=== PATIENT | male | born 1975 ===

== ENCOUNTER 2025-01-02 16:04 | Emergency (ER) | payer BC, SELFPAY ==
--- NOTE | ~2025-01-02 | US_ITS ---
EXAMINATION: US scrotum doppler DATE: 01/02/2025 18:11 INDICATION: b/l inguinal pain; initially stated scrotal pain . TECHNIQUE: Grayscale and Doppler ultrasound images of the testes were obtained. COMPARISON: 06/05/2015. FINDINGS: The right testis measures 3.4 x 2.5 x 3.2 cm. The left testis measures 3.1 x 2.6 x 2.8 cm. No testicular mass. Slightly increased flow in the right testicle. The right epididymis enlarged with slightly increased vascular flow. The left epididymis is slightly enlarged. 4 mm epididymal cyst on the left. Small bilateral hydroceles. Right varicocele. IMPRESSION: Bilateral epididymal enlargement, with increased flow on the right including increased flow in the ri ght testicle. These findings may represent right-sided epididymoorchitis, with possible left-sided ep ididymitis. Small bilateral hydroceles. Right varicocele. Reviewed, dictated and finalized at location K. IMPRESSION: Bilateral epididymal enlargement, with increased flow on the right including in creased flow in the right testicle. These findings may represent right-sided ep ididymoorchitis, with possible left-sided epididymitis. Small bilateral hydroceles. Right varicocele.
--- NOTE | ~2025-01-02 | CT_ITS ---
EXAMINATION: CT abdomen pelvis w con DATE: 01/02/2025 18:56 INDICATION: b/l inguinal pain and mons pubis pain TECHNIQUE: Computed tomography (CT) of the abdomen and pelvis was performed with 100 mL Omnipaque-350 intravenous contrast. Automated exposure control and iterative reconstruction technique were employe d. The dose-length product was 1645.65 mGy-cm. COMPARISON: None. FINDINGS: Lower thorax: Coronary artery calcifications Liver: Multiple subcentimeter hypodensities, too small to characterize but most likely represent cyst s or hemangiomas. Small caudate lobe cyst. Diffusely low-density parenchyma. Biliary/Gallbladder: Gallbladder is normal. No bile duct dilation. Pancreas: No mass or duct dilation. Spleen: Normal. Adrenals:2 cm indeterminate density left adrenal nodule. Kidneys: 1.4 cm indeterminate density left midpole lesion. Simple exophytic right lower pole cyst. Mu ltiple additional subcentimeter hypodensities bilaterally that are too small to characterize but most likely represent cysts. No hydronephrosis. No obstructing calcification. GI tract: No small or large bowel dilation. Normal appendix. Mesentery/Peritoneum: No ascites, mass, or free air. Retroperitoneum: No mass. Atherosclerotic calcifications of intra-abdominal arterial vessels. Pelvis: The urinary bladder is partly distended, with mild wall thickening. Soft Tissues: Small uncomplicated fat-containing umbilical hernia. Moderate bilateral fat-containing uncomplicated appearing inguinal hernias. Bones: No acute osseous finding. Moderate degenerative change of the pubic symphysis. IMPRESSION: Hepatic steatosis. Indeterminate left adrenal and left renal lesions, recommend nonemergent, but timely CT or MRI withou t and with contrast for further evaluation. Cystitis versus mild wall thickening from incomplete urinary bladder distention. Moderate fat-containing uncomplicated appearing bilateral inguinal hernias. Moderate degenerative change at the pubic symphysis. Reviewed, dictated and finalized at location K. IMPRESSION: Hepatic steatosis. Indeterminate left adrenal and left renal lesions, recommend nonemergent, but t imely CT or MRI without and with contrast for further evaluation. Cystitis versus mild wall thickening from incomplete urinary bladder distention . Moderate fat-containing uncomplicated appearing bilateral inguinal hernias. Moderate degenerative change at the pubic symphysis.
--- OUTSIDE RECORDS SUMMARY | 2025-01-02 16:07 | XMS_ITS | Clinical Summary ---
Author Organization [facility] Address [address] [place] [address] Care Team Providers Care Customer Support Consultant Name Role Phone Anupam Johansen MD Primary Care Provider Gigi finnegan Social History Tobacco Use Types Packs/Day Years Used Date Smoking Tobacco: Never Assessed Sex and Gender Information Value Date Recorded Sex Assigned at Not on file Legal Sex Male 7:25 PM CDT Gender Identity Not on file Sexual Orientation Not on file Last Filed Vital Signs Vital Sign Reading Time Taken Comments Blood Pressure 145/92 10/30/2015 11:30 AM COMMUNITY AFFAIRS DIRECTOR Pulse 91 10/30/2015 11:30 AM COMMUNITY AFFAIRS DIRECTOR Temperature - - Respiratory Rate - - Oxygen Saturation - - Inhaled Oxygen Concentration - - Weight 115.7 kg (255 lb) 10/30/2015 11:30 AM COMMUNITY AFFAIRS DIRECTOR Height 172.7 cm (5' 8 ) 10/30/2015 11:30 AM COMMUNITY AFFAIRS DIRECTOR Body Mass Index 38.77 10/30/2015 11:30 AM COMMUNITY AFFAIRS DIRECTOR Plan of Treatment Health Maintenance Due Date Last Done Comments Colorectal Cancer Screening Colonoscopy (10 Years) 1974 Annual Physical 1977 Hepatitis C 1992 DTaP, Tdap and Td Vaccines ( 1 - Tdap) 1993 Hepatitis B Vaccines (1 of 3 - 19+ 3-dose series) 1993 COVID-19 Vaccine (2023-2 5 season) 2024 Influenza Adult (#1) 2024 Zoster Vaccines (1 of 2) 2024 Meningococcal B Vaccine Aged Out No l onger eligible based on patient's age to complete this topic Meningococcal Vaccine Aged Out No micky mary eligible based on patient's age to complete this topic Pneumococcal Vaccine: Pediat rics (0 to 5 Years) and At-Risk Patients (6 to 64 Years) Aged Out No longer eligible b ased on patient's age to complete this topic RSV Immunizations Under 20 Months Aged Out No longer eligible based on patient's age to complete this topic Care Teams Customer Support Consultant Relationship Specialty Start Date End Date Anupam Johansen MD PCP - General 02/10/14
--- OUTSIDE RECORDS SUMMARY | 2025-01-02 16:07 | XMS_ITS | Clinical Summary ---
Author Organization [facility] Address [address] [place] [address] Care Team Providers Care Tin Roofer Name Role Phone Unavailable Primary Care Provider Unavailabl e Source Comments [facility],non-owned Affiliates and Associated Physician Practices is amultiple site organization consisting of ambulatory clinics and hospital sitesin [place], [place], [place] and [place]. This disclosure is being madepursuant to the Care Everywhere program and may not contain all information available regarding this patient. Last updated 18.[facility] Allergies Active Allergy Reactions Criticality Noted Date Comments Penicillins Anaphylaxis High 07/25/2012 Immunizations Name Administration Dates Next Due TD (ADULT), 5 LF TETANUS TOXOID, ADSORBED, PF Social History Tobacco Use Types Packs/Day Years Used Date Smoking Tobacco: Every Day Cigarettes Alcohol Use Standard Drinks/Week Comments No 0 (1 standard drink = 0.6 oz pur e alcohol) Sex and Gender Information Value Date Recorded Sex Assigned at Not on file Gender Identity Not on file Sexual Orientation Not on file Plan of Treatment Health Maintenance Due Date Last Done Comments COLOGUARD (AGES 45-75) - COL ON CA SCREENING 1974 COLON MONITORING 1974 COLONOSCOPY - COLON CA SCREENING 1974 CT COLONOGRAPHY - COLON CA SCREENING 1974 Colorectal Cancer Screening 1974 FIT - COLON CA SCREENING 1974 FLEX SIG - COLON CA SCREENING 1974 HIV SCREENING 1989 HEPATITIS C SCREENING 10/05/1992 HEPATITIS B VACCINE (1 of 3 - 19+ 3-dose series) 1993 PNEUMOCOCCAL VACCINE 50+ (1 of 2 - PCV) 1993 DTAP/TDAP/TD VACCINES (2 - T d or Tdap) 07/25/2022 07/25/2012 COVID-19 VACCINE (2023-2 5 season) 2024 INFLUENZA VACCINE (#1) 2024 DEPRESSION SCREENING 10/06/2024 ZOSTER VACCINE (1 of 2) 2024 LIPID TESTING 05/20/2028 05/20/2023 HIB VACCINE Aged Out No longer eligi ble based on patient's age to complete this topic HPV VACCINE Aged Out No longer eligi ble based on patient's age to complete this topic MENINGOCOCCAL (Group B) VACC INE SHARED DECISION-MAKING Aged Out No longer eligibl e based on patient's age to complete this topic MENINGOCOCCAL GROUPS A/C/Y/W VACCINE Aged Out No longer eligible b ased on patient's age to complete this topic
--- OUTSIDE RECORDS SUMMARY | 2025-01-02 16:07 | XMS_ITS | Data Portability ---
Author Organization [facility] vincent Александр [email or web address] Address [address] [place] [address] Assessment No assessment recorded. Plan of Treatment Reminders Order Date Submit Date Provider Last Modified By Organization Details Last Modified Time Details Appointments None recorded. Lab None recorded. Referral None recorded. Procedures None recorded. Surgeries None recorded. Imaging None recorded. Medication Orders prednisone 10 mg tablets in a dose pack 2015 016 Not available 6 05:03:15 azithromyci n 250 mg tablet 2015 016 [id number], [address] [place], [address], 6 05:03:16 hydrocodone -homatropin e 5 mg-1.5 mg/5 mL (5 mL) oral solution 2015 016 [id number], [address] [place], [address], 6 05:03:20 Patient TargetsNo targets recorded. Patient Instructions Encounter Date Encounter Id Patient Instructions Last Modified By Organization Details Last Modified Time 07/06/[id number] bronchitis: care instructions [id number] Not available 09/21/2016 05:03:10 Follow up if no improvement. [email or web address] Not available 07/06/2016 09:49:48 Reason for Referral None Reported. Problems Name Problem SNOMED Code Status Onset Date Resolution Date Notes Provider Name and Address Organization Details Recorded Time Hypertensive disorder 90041585 Active 2015 Alba Rowlette null, [facility] 6 09:40:58 Problem Notes None recorded. Procedures Surgical History Date Name Laterality Status Provider Name and Address Organization Details Recorded Time Hemorrhoidectomy completed Alba Cruz [facility] 07/06/2016 09:41:25 Imaging Results None recorded. Procedure Notes None recorded. Medical Equipment None Reported. Allergies Allergen ID Allergen Name Allergen Category Reaction Reaction Severity Criticality Documentation Date Start Date Code Code System Note Provider Name and Address Organization Details Recorded Time 006124 Product containin g penicilli n (product) medicatio n Not available Not available Not available 07/06/2016 23475 8001 SNOMED Alba wolff [facility] 6 09:39:35 Medications Name Sig Start Date Stop Date Status Note LastModified by Organization Details LastModified Time azithromycin 250 mg tablet TAKE 2 TABLETS (500 MG) BY ORAL ROUTE ONCE DAILY FOR 1 DAY THEN 1 TABLET (250 MG) BY ORAL ROUTE ONCE DAILY FOR 4 DAYS 2015 active Not Available Not Available Not Avai lable prednisone 10 mg tablets in a dose pack Take 1 package by oral route. 2015 active Not Available Not Available Not Avai lable atenolol active Not Available Not Avai lable Not Available fenofibrate active Not Available Not A vailable Not Available hydrocodone-ho matropine 5 mg-1.5 mg/5 mL (5 mL) oral solution Take 5 mL every 4 hours by oral route as needed. 2015 active Not Available Not Available Not Avai lable Vitals Date Recorded Body height Body weight Body mass index (BMI) Heart rate Respiratory rate Oxygen saturation Oxygen saturation in Arterial blood by Pulse oximetry Body temperature Systolic blood pressure Diastolic blood pressure Provider Name and Address Organization Details Last Updated DateTime 6 175.26 cm 942865. 09 g 36.9 kg/m2 77 /min 17 /min 98 % 98 % 98.2 [degF] 126 mm[Hg] 80 mm[Hg] Alba Cruz [facility] 6 09:39:12 Social History Question Answer Notes LastModified by Organizat ion Details LastModified Time Tobacco Smoking Status Current Every Day [facility] Patients Living Environment Safe And Secure? Yes Information not available 07/06/2016 High Risk For Falls? No Information not available 07/06/2016 Readiness To Learn Accepting Information not available 07/06/2016 Barriers To Learning None Information not available 07/06/2016 Learning Preferences No Preferences Information not available 07/06/2016 Do You Have Symptoms Associated With Zika Virus (fever, Rash, Joint Pain, Or Conjunctivitis)? No Information not available 07/06/2016 Have You Recently (within The Last 12 Weeks, Or During A Current ) Traveled To Or Lived In A Zika-affected Area? No Information not available 07/06/2016 Sex: Unknown Functional Status None recorded. Mental Status None recorded. Family History Relationship Description Onset Age of this Age Resolved Age Notes LastModified by Organization Details LastModified Time Father No current problems or disability [email or web address] Not available 07/06 09:41:00 Mother No current problems or disability drowlette Not available 07/06 09:41:00 Medical History No medical history recorded. Past Encounters Encounter ID Performer Location Encounter Start Date Encounter Closed Date Diagnosis/Indication Diagnosis SNOMED-CT Code Diagnosis ICD10 Code Diagnosis Note [id number] Albino Guevara MD [facility] [address] [facility] [address] [place] [address],[facility] [address] [place] [address] 07/06/2016 09:30:20 07/06/2016 09:52:04 Acute bronchitis with bronchospasm 42071582 J20.9 Health Concerns Section Related Observation LastModified by Organization Detai ls LastModified Time None Recorded Concern Status LastModified by Organization Details LastModified Time None Recorded Advance Directives Directive None Recorded Payers Encounter Date Sequence Insurance Name Policy Number Policy Echevarria Covered Member ID Echevarria Member ID Guarantor Name 07/06/2016 1 [place] Carlota Downey [id number] Lucas Downey Notes Date Note Type Note Provider Name and Address Organization Details Recorded Time 07/06/2016 text/html Upper Respirator y SymptomsReported bypatient.Location:[address] (prouctive cough); occ dyspnea and chest tightness Quality:colored phlegm;congested Severity:no pain Duration:1 week Onset/Timing:gradual Context:no sick contacts Modifying Factors:none Associated Symptoms:no sweats; no fever Albino Guevara MD [address] [place], [address], [facility] 07/06/2016 09:50:29
[2025-01-02 16:30] VITALS: BP 158/89; PULSE 89; RESP 20; TEMP 36.8; O2SAT 96
[2025-01-02 17:00] LABS: Add Urine Microscopic? NO; Appearance Urine Clear (Clear); Bilirubin Urine Negative (Negative); Blood Urine Negative (Negative); Color Urine Yellow (Yellow); Glucose Urine UA 3+ mg/dL (Negative); Ketones Urine Trace mg/dL (Negative); Leukocyte Esterase Ur Negative LEU/UL (Negative); Nitrate Urine Negative (Negative); Protein Urine Negative (Negative); Specific Grav Ur 1.041 (1.001-1.035); Urobilinogen Urine 0.2 mg/dL (<2.0); pH Urine 5.5 (5.0-9.0)
--- NOTE | 2025-01-02 17:12 | ED.MALEGU ---
HPI - Male Genitourinary General Chief complaint: Urogenital-Male Stated complaint: Pain from bilat groin pain radiating down legs Time Seen by Provider: 01/02/25 16:45 Source: patient Mode of arrival: ambulatory Limitations: no limitations History of Present Illness HPI Narrative: Patient presents with pain in his bilateral groin/ inguinal creases radiating to the anterior aspect of bilateral legs as well and his mons pubis. He states this has never happened before. Initially states he has never seen a urologist but later states that he is status post vasectomy. He is sexually active with women but denies any partners in the past month. He states he has been occasionally experiencing some rectal pain but only when he strains to have a bowel movement. He denies any dysuria, hematuria, urgency, or frequency. He denies any penile discharge. In triage she had initially complained of pain to his bilateral testicles/scrotum. His pain is 10/10 severity. He states he does not have any history of a hernia but he does have a history of a myocardial infarction. His symptoms started on 12/30/2024. He took ibuprofen earlier. No fevers or chills. No abdominal pain other than this low pelvic pain along his mons pubis. He has a history of type 2 diabetes mellitus not on insulin. Related Data Allergies Allergy/AdvReac Type Severity Reaction Status Date / Time ketorolac Allergy Unknown Unknown Verified 01/02/25 16:36 Penicillins Allergy Unknown Rash Verified 01/02/25 16:36 PMFSH Past Medical History Medical History (Updated 01/02/25 @ 19:36 by Tessie Ortega MD) Myocardial infarct Type 2 diabetes mellitus with hyperglycemia Surgical History Surgical History H/O vasectomy Family History Family History (Updated 11/14/15 @ 13:19 by DOCTOR UNKNOWN) Other Diabetes mellitus Family history of cardiovascular disease Hypertension Social History Social History Smoking status: Current every day smoker Sexual Orientation (if Verbalized by the Patient): Straight or Heterosexual Exam Narrative: GENERAL: Well-appearing, well-nourished, and in no acute distress while standing though does appear to be in pain and uncomfortable when he attempts to sit or lie down HEAD: Normocephalic, atraumatic. EYES: Non injected, non icteric ENT: Nares clear, no rhinorrhea or epistaxis. NECK: Supple. CHEST: Speaking in full sentences. No respiratory distress. HEART: Regular rate and rhythm. . ABDOMEN: obese but Soft, nondistended. : Mild TTP in bilateral inguinal creases but without obvious hernia or significant lymphadenopathy. normal external male genitalia. No tenderness to palpation of bilateral testes. No large scrotal mass. No change in pain either relief or provocation with elevating the scrotum. no penile discharge from the meatus. No palpable mass along mons pubic. No lesions/erythema/ecchymosis. EXTREMITIES: Normal range of motion. No lower extremity edema. SKIN: Warm, dry, no rash. NEURO: No focal deficits. Alert and oriented x3. PSYCH: Normal mood and affect. Course Vital Signs Vital signs: Vital Signs Temperature 98.3 F 01/02/25 16:30 Pulse Rate 89 01/02/25 16:30 Respiratory Rate 20 01/02/25 16:30 Blood Pressure 158/89 H 01/02/25 16:30 Pulse Oximetry 96 01/02/25 16:30 Oxygen Delivery Room Air 01/02/25 16:30 Temperature 98.3 F 01/02/25 16:30 Pulse Rate 66 01/02/25 20:07 Respiratory Rate 15 01/02/25 20:07 Blood Pressure 158/102 H 01/02/25 20:07 Pulse Oximetry 100 01/02/25 20:07 Oxygen Delivery Room Air 01/02/25 16:30 MDM - Male Genitourinary MDM Narrative Medical decision making narrative: Patient presents with pain in his bilateral groin crosses mons pubis and radiating into the anterior proximal area thighs and in bilateral inguinal creases. He initially reported bilateral testicle/scrotal pain in triage but not at the time of my assessment. In the emergency department he is afebrile with vital signs notable for hypertension. Hyperglycemia without anion gap acidosis. Glucosuria but No pyuria on urinalysis or other markers of infection or inflammation. Ultrasound with evidence varicocele, hydrocele, epididymitis and epididymitis orchitis. Discussed all of these findings with patient. He is given 1st dose of antibiotic in the emergency department with the rest of the 10 day course prescribed. Patient given prescriptions for [id number] medication and, for breakthrough pain, short course of opiate/ narcotic medication. Prescription monitoring program database is reviewed and shows that patient had a 30 tablets supply filled in September of 2024 with no interval fills. He is provided a urology referred. Discussed the possible sub fertility issue although he states that he has had a vasectomy. CT scan as below. There is evidence of bilateral inguinal hernias though no evidence of strangulation or incarceration on this or on physical exam. Provided referral/contact information for General surgery discuss possible elective repair in the future if desired. Discharged home stable condition. Differential Diagnosis Differential diagnosis: Likely urinary tract infection, urethritis, epididymitis, prostatitis and inguinal hernia Lab Data Attestation: I reviewed the patient's lab results. Lab results narrative: no leukocytosis, anemia, thrombocytopenia. Lactic acid normal. Normal renal function. No marked electrolyte abnormalities. 01/02/25 17:40 01/02/25 17:40 Labs: Lab Results 01/02/25 01/02/25 Range/Units 16:54 17:40 WBC 9.0 (4.5-10.0) K/mm3 RBC 4.90 (4.6-6.20) M/mm3 Hgb 14.6 (14.0-18.0) g/dL Hct 42.7 (42.0-52.0) % MCV 87.1 (80-100) fl MCH 29.8 (26-34) pg MCHC 34.2 (32-36) g/dl RDW 13.1 (11.5-14.5) % Plt Count 228 (150-375) k/mm3 MPV 11.8 H (7.4-10.4) fl Immature Gran % (Auto) 0.7 H (0-0.5) % Neut % (Auto) 58.8 (45.5-73.1) % Lymph % (Auto) 32.6 (18.3-44.2) % [place] % (Auto) 6.3 (2.6-8.5) % Eos % (Auto) 1.0 (0-4.4) % Baso % (Auto) 0.6 (0.2-1.2) % Lymph # (Auto) 2.94 (0.9-3.2) K/mm3 [place] # (Auto) 0.6 (0.1-0.6) K/mm3 Eos # (Auto) 0.1 (0-0.3) K/mm3 Baso # (Auto) 0.1 (0.0-0.1) K/mm3 Abs Immat Gran (auto) 0.06 H (0.00-0.031) K/mm3 Absolute Neuts (auto) 5.3 (1.3-6.7) K/mm3 Absolute Nucleated RBC 0.000 (0.0-0.012) K/mm3 Nucleated RBC % 0.0 (0.0-0.2) % Sodium 137 (137-145) mmol/L Potassium 4.0 (3.4-5.0) mmol/L Chloride 103 (98-107) mmol/L Carbon Dioxide 22 (22-30) mmol/L Anion Gap 12 (4-12) mmol/L BUN 8 L (9-20) mg/dL Creatinine 0.48 L (0.7-1.3) mg/dL Estim Creat Clear Calc 221 ml/min Estimated GFR > 60 (59 - ) Glucose 256 H (65-110) mg/dL Lactic Acid 1.7 (0.7-2.0) mmol/L Calcium 9.0 (8.4-10.2) mg/dL Magnesium 1.8 (1.6-2.3) mg/dL Total Bilirubin 0.5 (0.2-1.3) mg/dL AST 23 (17-59) U/L ALT 31 (6-50) U/L Alkaline Phosphatase 87 (38-126) U/L Total Creatine Kinase 89 (55-170) U/L Total Protein 8.0 (6.3-8.2) g/dL Albumin 4.6 (3.5-5.1) g/dL Urine Color Yellow (Yellow) Urine Appearance Clear (Clear) Urine pH 5.5 (5.0-9.0) Ur Specific [place] 1.041 H (1.001-1.035) Urine Protein Negative (Negative) mg/dL Urine Glucose (UA) 3+ H (Negative) mg/dL Urine Ketones Trace H (Negative) mg/dL Ur Blood (Man) Negative (Negative) Urine Nitrate Negative (Negative) Urine Bilirubin Negative (Negative) Urine Urobilinogen 0.2 (<2.0) mg/dL Leukocyte Esterase Rfl Negative (Negative) CARMEN/UL C. trachomatis (PCR) Not detected (NOT DETECTE) N. gonorrhoeae (PCR) Not detected (NOT DETECTE) T. vaginalis (PCR) Not detected (NOT DETECTE) Imaging Data Radiologist's impression: Impressions Scrotum Ultrasound 01/02/25 18:41 IMPRESSION: Bilateral epididymal enlargement, with increased flow on the right including increased flow in the right testicle. These findings may represent right-sided epididymoorchitis, with possible left-sided epididymitis. Small bilateral hydroceles. Right varicocele. Abdomen/Pelvis CT 01/02/25 19:22 IMPRESSION: Hepatic steatosis. Indeterminate left adrenal and left renal lesions, recommend nonemergent, but timely CT or MRI without and with contrast for further evaluation. Cystitis versus mild wall thickening from incomplete urinary bladder distention. Moderate fat-containing uncomplicated appearing bilateral inguinal hernias. Moderate degenerative change at the pubic symphysis. Discharge Plan Discharge Clinical Impression: Inguinal pain of both sides, Hyperglycemia due to diabetes mellitus, Epididymoorchitis, Epididymitis, left, Bilateral hydrocele, Right varicocele, Glucosuria, Hepatic steatosis, Lesion of adrenal gland, Lesion of left [place] kidney Groin pain Qualifiers: Laterality: unspecified laterality Qualified Code(s): R10.30 - Lower abdominal pain, unspecified Patient Disposition: Home, Self-Care Condition: Stable Instructions: Antibiotic Form, Epididymitis (ED), Epididymo-Orchitis (ED), Hidrocele (ED), Narcotic Safety (ED), Inguinal Hernia (ED), Varicocele (ED), Non-Alcoholic Fatty Liver Disease (ED), Testicle Pain (ED), Diabetic Hyperglycemia (ED), Groin Pain (ED), Scrotal Pain (ED) Additional Instructions: On your ultrasound you had evidence of: possible right-sided epididymoorchitis, possible left-sided epididymitis. Small bilateral hydroceles. Right varicocele. For the varicocele, you can use scrotal support (like a jock strap ). This can also help with the pain associated with epididymitis. This diagnosis is sometimes associated with decreased fertility, though you state that is not an issue since you had a vascetomy. Take the course of antibiotics prescribed for the infection. you received your 1st dose of antibiotic in the emergency department with rest the course prescribed. For all of these, recommend following up with urology in 1 week - the name of a urologist is listed below if you are unable to follow up with the one you previously saw. Acetaminophen/Tylenol (maximum 4000 mg per day) is safe to take with NSAIDs (ibuprofen/Motrin) for pain relief. For breakthrough pain, short course of opiate / narcotic medication has been prescribed. Continue taking your medications as prescribed. Good control of your diabetes is important to reducing complications such as worsening infection. On your CT there were Indeterminate left adrenal and left renal lesions, recommend nonemergent, but timely CT or MRI without and with contrast for further evaluation. Your PCP can help arrange these. On your CT scan you have evidence of bilateral inguinal hernias but these are only an issue if they became incarcerated or strangulated. You can follow up with a general surgeon (listed below) to discuss elective repair of these. Patient Language: Moroccan Prescriptions: New ibuprofen 600 mg tablet 600 mg PO TID PRN (Reason: pain) Qty: 30 0RF acetaminophen 500 mg capsule 1,000 mg PO Q6H PRN (Reason: pain) Qty: 30 0RF levofloxacin 500 mg tablet 500 mg PO DAILY 9 Days Qty: 9 0RF Rx Instructions: start 01/03 (received first dose in ED 01/02/25) oxycodone 5 mg capsule 5 mg PO Q8H PRN (Reason: pain) Qty: 10 0RF Follow-up/Referrals: Irais Mata MD [Physician] - ( Urology; in 1 week; call for an appointment) German Dinero MD [Physician] - (general surgeon) Lexie,MD Isi [Primary Care Provider] - Stand Alone Forms: Work/School Release IP Time of Disposition: 19:39
[2025-01-02] MEDS: MORPHINE SULFATE (*CRX) 4 MG/ML INJ IV PUSH (17:42)
[2025-01-02 17:45] VITALS: BP 152/110; PULSE 98; RESP 18; O2SAT 97
[2025-01-02 18:00] LABS: Basophils Absolute Auto 0.1 K/mm3 (0.0-0.1); Basophils Percent Auto 0.6 % (0.2-1.2); Eosinophils Absolute Auto 0.1 K/mm3 (0-0.3); Hematocrit 42.7 % (42.0-52.0); Hemoglobin 14.6 g/dL (14.0-18.0); Immature Granulocyte Absolute 0.06 K/mm3 (0.00-0.031); Immature Granulocyte Percent A 0.7 % (0-0.5); Lymphocytes Absolute Auto 2.94 K/mm3 (0.9-3.2); Lymphocytes Percent Auto 32.6 % (18.3-44.2); Mean Corpuscular HGB Conc 34.2 g/dl (32-36); Mean Corpuscular Hemoglobin 29.8 pg (26-34); Mean Corpuscular Volume 87.1 fl (80-100); Mean Platelet Volume 11.8 fl (7.4-10.4); Monocytes Absolute Auto 0.6 K/mm3 (0.1-0.6); Monocytes Percent Auto 6.3 % (2.6-8.5); Neutrophils Absolute Auto 5.3 K/mm3 (1.3-6.7); Neutrophils Percent Auto 58.8 % (45.5-73.1); Platelet Count Result 228 k/mm3 (150-375); Red Cell Distribution Width 13.1 % (11.5-14.5)
[2025-01-02 18:10] LABS: Lactic Acid Reflex 1.7 mmol/L (0.7-2.0)
[2025-01-02 18:11] LABS: Alanine Aminotransferase 31 U/L (6-50); Albumin Level 4.6 g/dL (3.5-5.1); Alkaline Phosphatase 87 U/L (38-126); Anion Gap 12 mmol/L (4-12); Aspartate Amino Transferase 23 U/L (17-59); Bilirubin,Total 0.5 mg/dL (0.2-1.3); Blood Urea Nitrogen 8 mg/dL (9-20); Carbon Dioxide 22 mmol/L (22-30); Chloride 103 mmol/L (98-107); Creatine Kinase 89 U/L (55-170); Estimated CRCL calculation 221 ml/min; Estimated Glomerular Filt Rate > 60; Glucose 256 mg/dL (65-110); Magnesium 1.8 mg/dL (1.6-2.3); Sodium 137 mmol/L (137-145)
[2025-01-02] MEDS: SODIUM CHLORIDE 0.9% IV 1,000 ML 999 ML IV CONT (18:27)
--- OUTSIDE RECORDS SUMMARY | 2025-01-02 18:41 | XMS_ITS | Clinical Summary ---
Author Organization [facility] Address [address] [place] [address] Care Team Providers Care Director Instructional Material Name Role Phone Unavailable Primary Care Provider Unavailabl e Source Comments [facility],non-owned Affiliates and Associated Physician Practices is amultiple site organization consisting of ambulatory clinics and hospital sitesin [place], [place], [place] and [place]. This disclosure is being madepursuant to the Care Everywhere program and may not contain all information available regarding this patient. Last updated 18.[facility] Alegría Allergies Active Allergy Reactions Criticality Noted Date [...]
--- OUTSIDE RECORDS SUMMARY | 2025-01-02 18:41 | XMS_ITS | Encounter Summary ---
Author Organization [facility] Healthcare Address [address] [place] [address] Care Team Providers Care Boiler Assistant Operator Name Role Phone Juan José Clemente MD Unavailable Lexie Mccarthy NP Primary Care Provide r Souleymane Rodas DO Unavailable [phone] Reason for Visit * Reason Onset Date Comments Error (Erroneous Encounter) 12/27/2024 Encounter Details Date Type Department Care Team ([facility] st Contact Info) Description 12/27/2024 Telephone [facility] Medical Group Primary Care [address] [facility] [address] [place] [phone] Lexie Mccarthy, SHARRON [address] [facility] [address] [place] [address] Error (Erroneous Encounter) Social History Tobacco Use Types Packs/Day Years Used Date Smoking Tobacco: Former Cigarettes 2 13.3 0 10/06/2008 - 02/03/2022 Smokeless Tobacco: Never Social Connection and Isolat ion Panel [NHANES] Answer Date Recorded In a typical week, how many times do you talk on the phone with family, friends, or neighbors? More than three times a week 05/20/2023 How often do you get togethe r with friends or relatives? More than three times a week 05/20/2023 How often do you attend [facility] or [facility] services? Patient declined 05/20/2023 Do you belong to any clubs o r organizations such as faith groups, unions, fraternal or athletic groups, or school groups? Patient declined 05/20/2023 How often do you attend meet ings of the clubs or organizations you belong to? Patient declined 05/20/2023 Are you , , di vorced, , never , or living with a partner? Patient declined 05/20/2023 AUDIT-C Answer Date Recorded Q1: How often do you have a drink containing alc ohol? 2-4 times a month 09/13/2024 Q2: How many drinks containi ng alcohol do you have on a typical day when you are drinking? 1 or 2 09/13/2024 Q3: How often do you have si x or more drinks on one occasion? Never 09/13/2024 Overall Financial Resource Strain (CARDIA) Answe r Date Recorded How hard is it for you to pa y for the very basics like food, housing, medical care, and heating? Not hard at all 05/20/2023 PHQ-2 Answer Date Recorded PHQ-2 Total Score (If total score is 3 or more points, staff should administer the PHQ-9) 0 03/02/2024 Hunger Vital Sign Answer Date Recorded Within the past 12 months, y ou worried that your food would run out before you got the money to buy more. Never true 05/20/20 23 Within the past 12 months, t he food you bought just didn't last and you didn't have money to get more. Never true 05/20/2023 PRAPARE - Transportation Answer Date Re corded In the past 12 months, has l ack of transportation kept you from medical appointments or from getting medications? No 05/06 In the past 12 months, has l ack of transportation kept you from meetings, work, or from getting things needed for daily living? No 05/20/2023 Housing Stability Vital Sign Answer Marquis e Recorded In the last 12 months, was t here a time when you were not able to pay the mortgage or rent on time? No 05/20/2023 In the last 12 months, how many places have you lived? 1 05/20/2023 In the last 12 months, was t here a time when you did not have a steady place to sleep or slept in a group home (including now)? No 05/20/2023 Personal Safety Answer Date Recorded Have you ever been in or are you currently in a harmful physical or emotional relationship or is someone making you feel afraid or unsafe? Denies 09/13/2024 Sex and Gender Information Value Date Recorded Sex Assigned at Not on file Legal Sex Male 6:04 PM [employer] Gender Identity Male 05/15/2022 11:34 AM CDT Sexual Orientation Straight 05/15/2022 11 :34 AM CDT documented as of this encounter Plan of Treatment Upcoming Encounters Date Type Department Care Team (Latest Contact Info) Description 03/30/2025 7:30 AM CDT Hospital Encounter [facility] [place] [address] [place] [phone] Souleymane Rodas DO [address] [place] [address] DR INIGUEZ [address] [place] [phone] 03/30/2025 7:30 AM CDT - 03/30/2025 9:40 AM CDT Surgery [facility] [place] [address] [place] [phone] Souleymane Rodas DO [address] [place] [address] DR INIGUEZ [address] [place] [phone] LEFT TOTAL KNEE ARTHROPLASTY Scheduled Procedures Name Priority Associated Diagnoses Date/Ti me ARTHROPLASTY TOTAL KNEE Primary osteoarthritis of left knee 03/30/2025 7:30 AM CDT documented as of this encounter Visit Diagnoses Not on filedocumented in this encounter Care Teams Boiler Assistant Operator Relationship Specialty Start Date End Date Lexie Mccarthy NP [address] [place] [id number] PCP - General Family Medicine 08/16/24 Juan José Clemente MD Consulting Physician Cardiology 04/02/22 Souleymane Rodas DO [address] [place] [address] DR INIGUEZ [address] [place] [phone] Consulting Physician Orthopedic Surgery 09/13/24 documented as of this encounter
--- OUTSIDE RECORDS SUMMARY | 2025-01-02 18:41 | XMS_ITS | Clinical Summary ---
Author Organization [facility] Virtual Care Address [address] [place] [phone] Phone Care Team Providers Care Export Clerk Name Role Phone Juan José Clemente MD Unavailable Lexie Mccarthy NP Primary Care Provide r Souleymane Rodas DO Unavailable [phone] Allergies Active Allergy Reactions Criticality Noted Date Comments Diphenhydramine Other (See comments),Agitation Low 08/31/2024 Insomnia, prevented susceptibility to anesthesia Penicillins Anaphylaxis,Unknown High 05/03/2011 UNKNOWN Ketorolac Hives Medium 05/19/2023 Give and large welts Medications lancets miscIndications:M orbid (severe) obesity due to excess calories ([facility]),Type 2 diabetes mellitus treated without insulin ([facility]) Use to test blood sugars once daily 100 each 2 2 Active lancets miscIndications:T ype 2 diabetes mellitus without complication, without long-term current use of insulin ([facility]) 1 each by other route daily as needed (as directed in am) Use as directed 100 each 3 4 Active diclofenac sodium (VOLTAREN) 1 % gelIndications:Pa in Apply 2 g topically 4 (four) times a day 50 g 4 Active amLODIPine (NORVASC) 10 mg tabletIndications :STEMI involving left circumflex coronary artery (HCC),Essential hypertension Take 1 tablet (10 mg total) by mouth daily 90 tablet 3 4 Active bisoprolol (ZEBETA) 10 mg tabletIndications :Angina pectoris, unstable (HCC),STEMI involving left circumflex coronary artery (HCC),Essential hypertension Take 1 tablet (10 mg total) by mouth daily 90 tablet 3 4 025 Active buPROPion XL (WELLBUTRIN XL) 150 mg 24 hr tabletIndications :Attention deficit disorder (ADD) without hyperactivity Take 1 tablet (150 mg total) by mouth every morning 90 tablet 4 Active clopidogreL (PLAVIX) 75 mg tabletIndications :STEMI involving left circumflex coronary artery (HCC) Take 1 tablet (75 mg total) by mouth daily 90 tablet 3 4 Active escitalopram (LEXAPRO) 10 mg tabletIndications :Attention deficit disorder (ADD) without hyperactivity Take 1 tablet (10 mg total) by mouth daily 90 tablet 4 4 Active omeprazole (PriLOSEC) 20 mg capsuleIndication s:Gastroesophagea l reflux disease without esophagitis Take 1 capsule (20 mg total) by mouth daily 30 capsule 4 025 Active ramipriL (ALTACE) 2.5 mg capsuleIndication s:Angina pectoris, unstable (HCC),STEMI involving left circumflex coronary artery (HCC),Leg edema,Essential hypertension,Dysl ipidemia Take 1 capsule (2.5 mg total) by mouth daily 90 capsule 3 4 Active rosuvastatin (CRESTOR) 40 mg tabletIndications :Dyslipidemia Take 1 tablet (40 mg total) by mouth daily 90 tablet 3 4 025 Active spironolactone (ALDACTONE) 25 mg tabletIndications :Leg edema Take 1 tablet (25 mg total) by mouth daily 90 tablet 3 4 025 Active ezetimibe (ZETIA) 10 mg tablet Take 1 tablet (10 mg total) by mouth daily 30 tablet 11 4 Active aspirin 81 mg chewable tabletIndications :Angina pectoris, unstable (HCC),STEMI involving left circumflex coronary artery (HCC),Essential hypertension Take 1 tablet (81 mg total) by mouth 2 (two) times a day 60 tablet 4 Active meloxicam (MOBIC) 7.5 mg tabletIndications :Osteoarthritis Take 1 tablet (7.5 mg total) by mouth daily 30 tablet 5 025 Active tirzepatide (Mounjaro) 12.5 mg/0.5 mL pen injector injectionIndicati ons:Type 2 diabetes mellitus treated without insulin ([facility]) Inject 0.5 mL (12.5 mg total) under the skin every 7 days 3 mL 2 5 Active blood-glucose sensor (FreeStyle Swapna 3 Sensor) deviceIndications :Type 2 diabetes mellitus treated without insulin ([facility]) Freestyle Swapna 3 sensor use for 14 days to monitor blood sugar. 6 each 3 5 Active LORazepam (ATIVAN) 1 mg tabletIndications :Anxiety Take 1 tablet (1 mg total) by mouth every 6 (six) hours as needed for anxiety 30 tablet 5 Active LORazepam (ATIVAN) 1 mg tablet Take 1 tablet (1 mg total) by mouth every 6 (six) hours as needed for anxiety 30 tablet 4 025 Discontin ued(Reord er) Active Problems Problem Noted Date Diagnosed Date Primary osteoarthritis of left knee 12/27/2024 Chondral loose body of right knee joint 09/14/20 Meniscal injury, right, subsequent encounter Primary osteoarthritis of right knee 09/01/2024 Morbid (severe) obesity due to excess calories 0 03/02/2024 On clopidogrel therapy 06/03/2023 Pericardial effusion 06/03/2023 Right ventricular enlargement 06/03/2023 Recurrent chest pain 05/19/2023 CAD s/p stents (x3) without angina pectoris 05/06 Assessment & Plan (06/05/2023 11:33 AM CDT): No symptoms. Improved chest pain. Seeing Cardiology. Continue current plan with medications Gastroesophageal reflux disease without esophagi tis 02/18/2023 Assessment & Plan (02/18/2023 10:35 AM CDT): Slightly worse. Discussed in detail possibility of it being aggravated by mounjaro. Trial of PPI while on lower dose and to continue on higher dose to see if reflux symptoms improve. If not consider it being more from mounjaro in which case we will also check amylase lipase levels prior to next visit Other specified anxiety diso rders (health/obesity major triggers) 02/18/2023 Assessment & Plan (02/18/2023 10:38 AM CDT): Not much better. See below. Advised patient to do cardiac rehab to relieve anxiety of how much exertion he can do. Refer to Psychiatry. Also given multiple other resources to try regarding counseling Essential hypertension 05/05/2022 Assessment & Plan (06/05/2023 11:33 AM CDT): Controlled on meds continue History of nicotine vaping 05/05/2022 Diarrhea due to malabsorption 05/05/2022 Quit smoking within past year 05/05/2022 Attention deficit disorder (ADD) without hyperac tivity 04/03/2022 Assessment & Plan (06/05/2023 11:26 AM CDT): Controlled on Wellbutrin continue Assessment & Plan (02/18/2023 10:37 AM CDT): Doing well on Wellbutrin 150. We will take caution regarding increasing dose due to cardiovascular disease Type 2 diabetes mellitus treated without insulin 04/03/2022 Assessment & Plan (06/05/2023 11:26 AM CDT): Diabetes controlled fasting hemoglobin A1c was 0.7 does have high triglycerides at 262 continue metformin Assessment & Plan (11/16/2022 4:13 PM DIRECTOR NETWORK DEVELOPMENT): Uncontrolled/worsening. Add on Mounjaro (also help with wt loss) Class 3 severe obesity due t o excess calories with serious comorbidity and body mass index (BMI) of 40.0 to 44.9 in adult 03/12/2022 Assessment & Plan (06/05/2023 11:32 AM CDT): Not at goal but improving. And is taking Wellbutrin on metformin and taking Mounjaro. Has lost several lb in the last few months. Assessment & Plan (02/18/2023 10:33 AM CDT): Get cardiac rehab to help with starting exercise (never got cardiac rehab). Increase tirzepatide from 5-7.5 Assessment & Plan (11/16/2022 4:13 PM DIRECTOR NETWORK DEVELOPMENT): Discussed weight loss. I recommend following 1200 calorie diet. As well as exercising 30-45 minutes most days of the week.also trial of mounjaro (also for diabetes) Dyslipidemia 02/10/2022 Assessment & Plan (06/05/2023 11:34 AM CDT): Taking Crestor continue last LDL 115 NSTEMI (non-ST elevated myocardial infarction) Assessment & Plan (06/05/2023 11:33 AM CDT): See above Resolved Problems Problem Noted Date Diagnosed Date Resolved Date Mixed hyperlipidemia 06/03/2023 023 H/O heart artery stent 05/19/202306/05 COVID-19 virus infection 05/18/2022 Weight gain 05/05/2022 06/05/2023 Carotid bruit 05/05/2022 06/05/2023 Palpable thyroid 05/05/2022 06/05/2023 CAD in [place]iat[place] artery 03/15/2022 023 Angina pectoris, unstable 03/12/2022 Overview (03/12/2022): Added automatically from request for surgery [id number] Hypertensive emergency 02/10/202205/28 Family history of coronary artery disease 02/10/2022 05/28/2023 Encounters Date Type Department Care Team Description 12/28/2024 9:15 AM CDT Telemedicine [facility] [address] [place] [phone] Flory Chaudhary NP Type 2 diabetes mellitus treated without insulin (HCC) (Primary Dx); Anxiety 12/28/2024 Telephone [facility] [employer] [address] [place] [phone] Rhianna Carmichael Pharmacy Issue 12/27/2024 Telephone [facility] [address] [facility] [address] [place] [address] Lexie Mccarthy NP Error (Erroneous Encounter) 12/27/2024 Orders Only [facility] [address] [place] [address] [address] [place] [address] Souleymane Rodas, Primary osteoarthritis of left knee (Primary Dx) 12/27/2024 Telephone [facility] [address] [place] [address] [address] [place] [address] Souleymane Rodas DO DIMITRY knee replacement 12/24/2024 Telephone [facility] [address] [place] [address] [address] [place] [phone] Souleymane Rodas DO med request 12/23/2024 8:15 AM CDT Office Visit [facility] [address] [facility] [address] [place] [phone] Souleymane Rodas DO Primary osteoarthritis of left knee (Primary Dx) 12/20/2024 6:15 PM CDT - 12/20/2024 11:59 PM CDT Hospital Encounter [facility] [address] [place] [address] Acute medial meniscus tear of left knee, initial encounter Discharge Disposition: Discharge to home or self care 11/26/2024 Telephone [facility] [address] [place] [phone] Souleymane Rodas DO MRI denied 11/15/2024 Telephone [facility] Cardiology [address] [facility] [address] [place] [address] Emily Garcia NP 11/08/2024 Telephone [facility] Cardiology [address] [facility] [address] [place] [address] Tanner Donnelly MD Fatigue and shortness of breath 10/26/2024 8:45 AM DIRECTOR NETWORK DEVELOPMENT Office Visit [facility] Medical [facility] Medicine [address] [facility] [address] [place] [address] Donovan Thomas PA Status post arthroscopy of right knee (Primary Dx); Complex tear of medial meniscus of right knee as current injury, initial encounter; Chondral loose body of right knee joint; Acute medial meniscus tear of left knee, initial encounter 10/07/2024 Telephone [facility] [address] [place] [address] Souleymane Rodas, return to work from Last 3 Months Immunizations Immunization Administration Dates Next Due Influenza, Trivalent, Preser vative Free, Intramuscular 09/07/2024 Influenza, Unspecified 06/27/2023(Deferred: Capri ent Refused) TD Preservative Free 07/25/2012 Surgical History Surgery Date Site/Laterality Comments VASECTOMY HEMORRHOID SURGERY CORONARY ANGIOPLASTY WITH STENT PLACEMENT 03/15/2022 CARDIAC CATHETERIZATION 05/20/2023 Left Medical History Medical History Date Comments Diabetes mellitus (HCC) Hypertension Anxiety History of heart attack NSTEMI (non-ST elevated myocardial infarction) ( [facility]) Coronary artery disease Hyperlipidemia COVID-19 virus infection 05/18/2022 Family history of coronary artery disease 2021 Hypertensive emergency 02/10/2022 H/O heart artery stent 05/19/2023 GERD (gastroesophageal reflux disease) Osteoarthritis Family History Medical History Relation Name Comments Heart attack Maternal Grandfather Caesar Heart attack Maternal Grandmother Braulio Heart attack Mother Jordana robles Relation Name Status Comments Father Alive Maternal Grandfather Caesar Maternal Grandmother Braulio Mother Jordana robles Social History Tobacco Use Types Packs/Day Years Used Date Smoking Tobacco: Former Cigarettes 2 13.3 0 10/06/2008 - 02/03/2022 Smokeless Tobacco: Never Tobacco Cessation:Counseling Given: Not Answered Social Connection and Isolat ion Panel [NHANES] Answer Date Recorded In a typical week, how many times do you talk on the phone with family, friends, or neighbors? More than three times a week 05/20/2023 How often do you get togethe r with friends or relatives? More than three times a week 05/20/2023 How often do you attend chur ch or nondenominational services? Patient declined 05/20/2023 Do you belong to any clubs o r organizations such as orthodoxy groups, unions, fraternal or athletic groups, or [...] place to sleep or slept in a assisted (including now)? No 05/20/2023 Personal Safety Answer Date Recorded Have you ever been in or are you currently in a harmful physical or emotional relationship or is someone making you feel afraid or unsafe? Denies 09/13/2024 Sex and Gender Information Value Date Recorded Sex Assigned at Not on file Legal Sex Male 6:04 PM DIRECTOR NETWORK DEVELOPMENT Gender Identity Male 05/15/2022 11:34 AM CDT Sexual Orientation Straight 05/15/2022 11 :34 AM CDT Obstetrics History Last Filed Vital Signs Vital Sign Reading Time Taken Comments Blood Pressure 121/77 09/13/2024 5:10 PM DIRECTOR NETWORK DEVELOPMENT Pulse 86 09/13/2024 5:10 PM DIRECTOR NETWORK DEVELOPMENT Temperature 36.7 C (98 F) 09/13/2024 4:40 PM DIRECTOR NETWORK DEVELOPMENT Respiratory Rate 18 09/13/2024 5:10 PM DIRECTOR NETWORK DEVELOPMENT Oxygen Saturation 95% 09/13/2024 5:10 PM DIRECTOR NETWORK DEVELOPMENT Inhaled Oxygen Concentration - - Weight 117.9 kg (260 lb) 10/26/2024 8:31 AM DIRECTOR NETWORK DEVELOPMENT Height 172.7 cm (5' 8 ) 10/26/2024 8:31 AM DIRECTOR NETWORK DEVELOPMENT Body Mass Index 39.53 10/26/2024 8:31 AM DIRECTOR NETWORK DEVELOPMENT Plan of Treatment Upcoming Encounters Date Type Department Care Team (Latest Contact Info) Description 03/30/2025 7:30 AM CDT Hospital Encounter [facility] [place] [address] [place] [phone] Souleymane Rodas DO [address] [place] [address] DR INIGUEZ [address] [place] [address] 03/30/2025 7:30 AM CDT - 03/30/2025 9:40 AM CDT Surgery [facility] [place] [address] [place] [address] Souleymane Rodas DO [address] [place] [address] DR INIGUEZ [address] [place] [id number] LEFT TOTAL KNEE ARTHROPLASTY Scheduled Procedures Name Priority Associated Diagnoses Date/Ti me ARTHROPLASTY TOTAL KNEE Primary osteoarthritis of left knee 03/30/2025 7:30 AM CDT Health Maintenance Due Date Last Done Comments Albumin Creatinine Ratio, Urine 1974 Colon Cancer Screening-Colonoscopy 1974 Hepatitis C Screening 1974 Prostate Cancer Screening-PSA 1974 Dilated Eye Exam 1974 Hepatitis B Screening 1992 Pneumococcal vaccine <65 (1 of 2 - PCV) 1993 DTaP/Tdap/Td Vaccine (1 - Tdap) 07/26/2012 2 Regular Well Visit/Exam 18-64 11/11/2023 11/11/2022 Lung Cancer Screening 2024 Zoster Vaccine (1 of 2) 2024 Depression Screening 03/02/2025 03/02/2024, 11/11/2022, 04/02/2022, Additional history exists Foot Exam 03/02/2025 03/02/2024, 11/11/2022 Hemoglobin A1C 03/07/2025 09/06/2024, 02/04, 05/20/2023, Additional history exists Lipid Panel 09/06/2025 09/06/2024, 05/06, 02/10/2022 eGFR 09/06/2025 09/06/2024, 05/06, 05/20/2023, Additional history exists Influenza Vaccine Completed 09/07/2024 Medical Devices Implanted Type Area Design Teacher Device Identifier Shelf Expiration Date Model / Serial / Lot [employer] Synergy 3mm 16mm 144cm Radiopaque 1 Access Port Inflation Lumen [id number] - [id number] Implanted:Qty: 1 on 02/10/2022 by Juan José Clemente MD at [facility] [employer] 12/27/2022 [id number] / / [id number] [employer] Stent Coronary De Rx Cocr Ors Msn 2.5x26mm [id number] - [id number] Implanted:Qty: 1 on 03/15/2022 by Juan José Clemente MD at [facility] [employer] 11/09/2023 [id number] / / [id number] [employer] Stent Coronary De Rx Cocr Ors Msn 3.5x22mm [id number] - [id number] Implanted:Qty: 1 on 05/20/2023 by Jackson Ramirez MD at [facility] [employer] 09/18/2023 [id number] / / [id number] [employer] Stent Coronary De Rx Cocr Ors Msn [id number] - [id number] Implanted:Qty: 1 on 05/20/2023 by Jackson Ramirez MD at [facility] [employer] 08/20/2023 [id number] / / [id number] Procedures Procedure Name Priority Date/Time Associated Diagnosis Comments MRI KNEE LEFT WO CONTRAST Schedule Routine, Read Routine (OP Routine) 12/20/2024 6:41 PM CDT Acute medial meniscus tear of left knee, initial encounter EGFR Routine 09/06/2024 3:32 PM DIRECTOR NETWORK DEVELOPMENT Preoperative evaluation to rule out surgical contraindication HEMOGLOBIN A1C Routine 09/06/2024 3:32 PM DIRECTOR NETWORK DEVELOPMENT Preoperative evaluation to rule out surgical contraindication LIPID PANEL Routine 09/06/2024 3:32 PM DIRECTOR NETWORK DEVELOPMENT Preoperative evaluation to rule out surgical contraindication from Last 3 Months or Most Recently Relevant to Health Maintenance Results * MRI Knee Left WO Contrast (12/20/2024 6:41 PM CDT) Anatomical Region Laterality Modality Lower Extremities Left Magnetic Reson ance 12/21/2024 9:00 AM CDT Narrative 12/21/2024 9:09 AM CDT EXAM DESCRIPTION: MRI KNEE LEFT WO CONTRAST REASON FOR STUDY: Meniscal tear, untreated, new symptoms Lateral and inferior knee pain x 8 months, no known injury, worse since having knee surgery on the right TECHNIQUE: Multiplanar, multisequence MRI of the left knee was performed without contrast. COMPARISON: X-rays 08/01/2024 FINDINGS: Joint and Bursae: There is a large joint effusion. Synovitis. There is a small Handy's cyst with no leak. Bones: No suspicious marrow infiltration. No avascular necrosis. There is smudging of trabecula along the central weight-bearing medial femoral condyle with mild adjacent edema. Findings favor small nondisplaced subchondral fractures. The patient without trauma, insufficiency type fracture possible. Cartilage: Patellofemoral: Deep chondral fissure lateral facet of the upper 3rd of the patella with subchondral cystic change. Otherwise, mild chondrosis median ridge of the patella. Medial compartment: Foci of near full-thickness to full-thickness chondrosis of the central weight-bearing medial femoral condyle. Lateral Compartment: No significant chondrosis. Ligaments: The ACL, PCL, MCL and lateral collateral ligament complex are intact. Extensor Mechanism: The quadriceps and patellar tendons are intact. Tendons/Soft tissues: The popliteus tendon is intact. The musculature is intact without evidence of tear. The popliteal neurovascular bundle is normal. Medial Meniscus: There is a complex tear of the posterior horn of the medial meniscus extending into the midbody with extrusion of the midbody. Lateral Meniscus: The lateral meniscus is intact. IMPRESSION: There is smudging of trabecula along the central weight-bearing medial femoral condyle with mild adjacent edema. Findings favor small nondisplaced subchondral fractures. Insufficiency type fracture possible given lack of described trauma. Correlate clinically. Foci of near full-thickness to full-thickness chondrosis of the central weight-bearing medial femoral condyle. Deep chondral fissure lateral facet of the upper 3rd of the patella with subchondral cystic change. Otherwise, mild chondrosis median ridge of the patella. Complex tear posterior horn medial meniscus extending into the midbody with extrusion of the midbody. Large joint effusion with synovitis. Small Handy's cyst with no leak. THIS IS AN ELECTRONICALLY VERIFIED FINAL REPORT 12/21/2024 9:09 AM - Electronically signed by Simeon CHAUHAN: TIEN Report ID: [id number] Reading Location: [id number] Procedure Note Simeon Storey MD - 12/21/2024 EXAM DESCRIPTION: MRI KNEE LEFT WO CONTRAST REASON FOR STUDY: Meniscal tear, untreated, new symptoms Lateral and inferior knee pain x 8 months, no known injury, worse sincehaving knee surgery on the right TECHNIQUE: Multiplanar, multisequence MRI of the left knee was performed without contrast. COMPARISON: X-rays 08/01/2024 FINDINGS: Joint and Bursae: There is a large joint effusion. Synovitis. There is a small Handy's cyst with no leak. Bones: No suspicious marrow infiltration. No avascular necrosis. There is smudging of trabecula along the central weight-bearing medialfemoral condyle with mild adjacent edema. Findings favor small nondisplaced subchondral fractures. The patient without trauma, insufficiency type fracture possible. Cartilage: Patellofemoral: Deep chondral fissure lateral facet of theupper 3rd of the patella with subchondral cystic change. Otherwise, mildchondrosis median ridge of the patella. Medial compartment: Foci of near full-thickness tofull-thickness chondrosis of the central weight-bearing medial femoral condyle. Lateral Compartment: No significant chondrosis. Ligaments: The ACL, PCL, MCL and lateral collateral ligament complex are intact. Extensor Mechanism: The quadriceps and patellar tendons are intact. Tendons/Soft tissues: The popliteus tendon is intact. The musculature is intact without evidence of tear. The popliteal neurovascular bundle isnormal. Medial Meniscus: There is a complex tear of the posterior horn of themedial meniscus extending into the midbody with extrusion of the midbody. Lateral Meniscus: The lateral meniscus is intact. IMPRESSION: There is smudging of trabecula along the central weight-bearing medial femoral condyle with mild adjacent edema. Findings favor smallnondisplaced subchondral fractures. Insufficiency type fracture possible given lack of described trauma. Correlate clinically. Foci of near full-thickness to full-thickness chondrosis of the central weight-bearing medial femoral condyle. Deep chondral fissure lateral facet of the upper 3rd of the patella with subchondral cystic change. Otherwise, mild chondrosis median ridge of the patella. Complex tear posterior horn medial meniscus extending into the midbodywith extrusion of the midbody. Large joint effusion with synovitis. Small Handy's cyst with no leak. THIS IS AN ELECTRONICALLY VERIFIED FINAL REPORT 12/21/2024 9:09 AM - Electronically signed by Simeon CHAUHAN Report ID: [id number] Reading Location: [id number] Donovan ROBIN IMG MRI PROCEDURES Final Result * eGFR (09/06/2024 3:32 PM DIRECTOR NETWORK DEVELOPMENT) eGFR >90 >=60 mL/min/1. 73 m2 Comment: Interpretive Data Reference Interval Normal >/= 90 mL/min/1.73m2 Mildly decreased* 60 - 89 mL/min/1.73m2 Mildly to moderately decreased 45 - 59 mL/min/1.73m2 Moderately to severely decreased 30 - 44 mL/min/1.73m2 Severely decreased 15 - 29 mL/min/1.73m2 Kidney Failure < 15 mL/min/1.73m2 *Relative to young adult level Estimated glomerular filtration rate is determined by the 2020 CKD-EPI equation recommended by the National Kidney Foundation (A Unifying Approach to GFR Estimation: Recommendations of the NKF-ASK Task Force on Reassessing the Inclusion of Race in Diagnosing Kidney Disease, JASN 2020). The CKD-EPI equation should not be used for patients with unstable renal function and has not been validated in children and those over 70. Current interpretive data was last reviewed 2021. Testing performed by: [address] [address] Blood 09/06/2024 3:32 PM DIRECTOR NETWORK DEVELOPMENT 09/06/2024 4:14 PM DIRECTOR NETWORK DEVELOPMENT Lexie Mccarthy NP LAB BLOOD ORDERABLES Final Result [facility] [address] [facility] [place] [address] * (ABNORMAL) Hemoglobin A1c (09/06/2024 3:32 PM DIRECTOR NETWORK DEVELOPMENT) Hgb A1C 6.9(H) 4.0 - 5.6 % Comment:Testing performed by : [address] [address] Estimated Average Glucose 151 mg/dL [facility] Comment: The ADA recommends reporting an estimated Average Glucose (eAG) with all Hemoglobin A1c results using the equation derived from a study of 507 normal and diabetic adults. Minority populations were underrepresented and children were not included. (Diabetes Care 31:2680-9945, 2008). The eAG is not equivalent to a fasting glucose. Testing performed by: [facility], [address] [place] [address]., [id number] Blood 09/06/2024 3:32 PM DIRECTOR NETWORK DEVELOPMENT 09/06/2024 4:14 PM DIRECTOR NETWORK DEVELOPMENT Lexie Mccarthy NP LAB BLOOD ORDERABLES Final Result [facility] [address] [facility] [place] [address] * (ABNORMAL) Lipid panel (09/06/2024 3:32 PM DIRECTOR NETWORK DEVELOPMENT) Cholesterol 158 30 - 199 mg/dL Comment: Interpretive Data Ages < or = 19 years Acceptable: <170 mg/dL Borderline high: 170-199 mg/dL High: >or= 200 mg/dL Ages > or = 20 years Desirable: <200 mg/dL Borderline high: 200-239 mg/dL High: >or= 240 mg/dL Literature References: 1. Expert Panel on Integrated Guidelines for Cardiovascular Health and Risk Reduction in Children and Adolescents. Pediatrics 2011;128:S213 2. NCEP Expert Panel. Circulation 2004;110:227 Current Interpretive Data was last revised on 2018. Testing performed by: [facility], [address] [place] [address]., [address] Triglycerides 254(H) <=149 mg/dL [facility] Comment: Interpretive Data Ages < or = 9 years Acceptable: <75 mg/dL Borderline high: 75-99 mg/dL High: >or= 100 mg/dL Ages 10 to 20 years Acceptable: <90 mg/dL Borderline high: 90-129 mg/dL High: >or= 130 mg/dL Ages > or = 20 years Desirable: <150 mg/dL Borderline high: 150-199 mg/dL High: 200-499 mg/dL Very high: >or= 499 mg/dL Literature References: 1. Expert Panel on Integrated Guidelines for Cardiovascular Health and Risk Reduction in Children and Adolescents. Pediatrics 2011;128:S213 2. NCEP Expert Panel. Circulation 2004;110:227 Current Interpretive Data was last revised on 2018. Testing performed by: [facility], [address] [place] [address]., [address] HDL 34(L) >=40 mg/dL [facility] AMARAL Comment: Interpretive Data Ages < or = 19 years Acceptable: >45 mg/dL Borderline low: 40-45 mg/dL Low: <40 mg/dL Ages > or = 20 years Desirable: >or= 60 mg/dL Low: <40 mg/dL Literature References: 1. Expert Panel on Integrated Guidelines for Cardiovascular Health and Risk Reduction in Children and Adolescents. Pediatrics 2011;128:S213 2. NCEP Expert Panel. Circulation 2004;110:227 Current Interpretive Data was last revised on 2018. Testing performed by: [address] [address] LDL, calculated 82 <=129 mg/dL [facility] AMARAL Comment: Interpretive Data Ages < or = 19 years Acceptable: <110 mg/dL Borderline high: 110-129 mg/dL High: >or= 130 mg/dL Ages > or = 20 years Optimal: <100 mg/dL Near optimal: 100-129 mg/dL Borderline high: 130-159 mg/dL High: >160 mg/dL Calculated using the Gallo LDL-C estimating equation. This equation was implemented on 2024. Prior to this date LDL-C was estimated using the Friedewald equation. Literature References: 1. Expert Panel on Integrated Guidelines for Cardiovascular Health and Risk Reduction in Children and Adolescents. Pediatrics 2011;128:S213 2. NCEP Expert Panel. Circulation 2004;110:227 3. Gallo Toth al. SHIRA Cardiol. 2020 February 03;5(5):540-548. doi: 10.1001/jamacardio.2020.0013 Current Interpretive Data was last revised on 2024. Testing performed by: [facility], [address] [place] [address]., [address] Non-HDL Cholesterol 124 mg/dL [facility] AM[facility]AL Comment: Interpretive Data Ages < or = 19 years Acceptable: <120 mg/dL Borderline high: 120-144 mg/dL High: >145 mg/dL Ages > or = 20 years When triglycerides are >200 mg/dL, Non-HDL cholesterol is a secondary target of therapy with treatment goals that are 30 mg/dL greater than the LDL cholesterol target. Literature References: 1. Expert Panel on Integrated Guidelines for Cardiovascular Health and Risk Reduction in Children and Adolescents. Pediatrics 2011;128:S213 2. NCEP Expert Panel. Circulation 2004;110:227 Current Interpretive Data was last revised on 2018. Testing performed by: [facility], [address] [place] [address]., [address] Chol/HDL ratio 5 [facility] AM[facility]AL Comment:Testing performed by : [address] [address] Blood 09/06/2024 3:32 PM DIRECTOR NETWORK DEVELOPMENT 09/06/2024 4:14 PM DIRECTOR NETWORK DEVELOPMENT Lexie Mccarthy NP LAB BLOOD ORDERABLES Final Result [facility] [address] [facility] [place] [address] from Last 3 Months or Most Recently Relevant to Health Maintenance Insurance [employer] ACCESS CHOICE [employer] ACCESS CHOICE Advance Directives For more information, please contact: [phone] * Full Code (Latest Code Status on File) Date Activated Date Inactivated Comments 05/20/2023 1:05 PM 05/21/2023 3:09 PM * LIMITED - No CPR Date Activated Date Inactivated Comments 05/19/2023 3:19 PM 05/20/2023 1:05 PM Question Answer Comments Provide aggressive medical m anagement before a full cardiopulmonary arrest occurs. Use antibiotics, IV Fluids, and medical treatment unless specifically selected below: No intubation Discussed with the following attending physician : Radha * Full Code Date Activated Date Inactivated Comments 03/15/2022 1:46 PM 03/15/2022 10:02 PM * Full Code Date Activated Date Inactivated Comments 02/10/2022 5:28 PM 02/12/2022 4:43 PM * Full Code Date Activated Date Inactivated Comments 02/10/2022 5:08 PM 02/10/2022 5:28 PM Care Teams Export Clerk Relationship Specialty Start Date End Date Lexie Mccarthy NP [address] [place] [id number] PCP - General Family Medicine 08/16/24 Juan José Clemente MD Consulting Physician Cardiology 04/02/22 Souleymane Rodas DO [address] [address] Consulting Physician Orthopedic Surgery 09/13/24
--- OUTSIDE RECORDS SUMMARY | 2025-01-02 18:41 | XMS_ITS | Referral Summary ---
Author Organization [facility] Virtual Care Address [facility] [place] [address] Phone Care Team Providers Care New Business Clerk Name Role Phone Juan José Clemente MD Unavailable Lexie Mccarthy NP Primary Care Provide r Souleymane Rodas DO Unavailable [phone] Encounters Date Type Department Care Team Description 12/28/2024 Telephone [facility] Care [address] [place] [phone] Rhianna Carmichael Pharmacy Issue 12/28/2024 9:15 AM CDT Telemedicine [address] [phone] Flory Chaudhary NP Type 2 diabetes mellitus treated without insulin (HCC) (Primary Dx); Anxiety 12/27/2024 Telephone [facility] Primary Care [facility] [address] [place] [address] Lexie Mccarthy NP Error (Erroneous Encounter) 12/27/2024 Orders Only [facility] Medicine [address] [place] [address] [place] [phone] Souleymane Rodas DO Primary osteoarthritis of left knee (Primary Dx) 12/27/2024 Telephone [facility] [address] [place] [phone] Souleymane Rodas, DIMITRY knee replacement 12/24/2024 Telephone [facility] [address] [facility] [address] [place] [address] Souleymane Rodas, med request 12/23/2024 8:15 AM CDT Office Visit [facility] [address] [facility] [address] [place] [address] Souleymane Rodas, Primary osteoarthritis of left knee (Primary Dx) 12/20/2024 6:15 PM CDT - 12/20/2024 11:59 PM CDT Hospital Encounter [facility] [address] [place] [address] Acute medial meniscus tear of left knee, initial encounter Discharge Disposition: Discharge to home or self care 11/26/2024 Telephone [facility] [address] [place] [address] [address] [place] [address] Souleymane Rodas, DO MRI denied 11/15/2024 Telephone [facility] Cardiology [address] [facility] [address] [place] [address] Emily Garcia NP 11/08/2024 Telephone [facility] Cardiology [address] [facility] [address] [place] [phone] Tanner Donnelly MD Fatigue and shortness of breath 10/26/2024 8:45 AM WRAP KNITTING MACHINE OPERATOR Office Visit [facility] [address] [facility] [address] [place] [address] Donovan Thomas PA Status post arthroscopy of right knee (Primary Dx); Complex tear of medial meniscus of right knee as current injury, initial encounter; Chondral loose body of right knee joint; Acute medial meniscus tear of left knee, initial encounter 10/07/2024 Telephone [facility] [address] [facility] [address] [place] [address] Souleymane Rodas, return to work from Last 3 Months Allergies Active Allergy Reactions Criticality Noted Date Comments Diphenhydramine Other (See comments),Agitation Low 08/31/2024 Insomnia, prevented susceptibility to anesthesia Penicillins Anaphylaxis,Unknown High 05/03/2011 UNKNOWN Ketorolac Hives Medium 05/19/2023 Give and large welts Medications lancets miscIndications:M orbid (severe) obesity due to excess calories ([facility]),Type 2 diabetes mellitus treated without insulin ([facility]) Use to test blood sugars once daily 100 each 2 2 Active lancets miscIndications:T ype 2 diabetes mellitus without complication, without long-term current use of insulin ([facility]) 1 each by other route daily as [...] ons:Type 2 diabetes mellitus treated without insulin ([facility]) Inject 0.5 mL (12.5 mg total) under the skin every 7 days 3 mL 2 5 Active blood-glucose sensor (FreeStyle Swapna 3 Sensor) deviceIndications :Type 2 diabetes mellitus treated without insulin ([facility]) Freestyle Swapna 3 sensor use for 14 [...] metformin Assessment & Plan (11/16/2022 4:13 PM WRAP KNITTING MACHINE OPERATOR): Uncontrolled/worsening. Add on Mounjaro (also help with [...] 5-7.5 Assessment & Plan (11/16/2022 4:13 PM WRAP KNITTING MACHINE OPERATOR): Discussed weight loss. 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 03/15/2022 023 Angina pectoris, unstable 03/12/2022 Overview (03/12/2022): Added automatically from request for surgery [id number] Hypertensive emergency 02/10/202205/28 Family history of coronary artery disease 02/10/2022 05/28/2023 Immunizations Immunization Administration Dates Next Due Influenza, Trivalent, Preser vative Free, Intramuscular 09/07/2024 Influenza, Unspecified 06/27/2023(Deferred: Capri ent Refused) TD Preservative Free 07/25/2012 Social History Tobacco Use Types Packs/Day Years [...] week 05/20/2023 How often do you attend [facility] or [facility]? Patient declined 05/20/2023 Do you belong to any clubs o r organizations such as rastafari groups, unions, fraternal or athletic groups, or [...] place to sleep or slept in a mcc (including now)? No 05/20/2023 Personal Safety Answer Date Recorded Have you ever been in or are you currently in a harmful physical or emotional relationship or is someone making you feel afraid or unsafe? Denies 09/13/2024 Sex and Gender Information Value Date Recorded Sex Assigned at Not on file Legal Sex Male 6:04 PM WRAP KNITTING MACHINE OPERATOR Gender Identity Male 05/15/2022 11:34 AM CDT Sexual Orientation Straight 05/15/2022 11 :34 AM CDT Last Filed Vital Signs Vital Sign Reading Time Taken Comments Blood Pressure 121/77 09/13/2024 5:10 PM WRAP KNITTING MACHINE OPERATOR Pulse 86 09/13/2024 5:10 PM WRAP KNITTING MACHINE OPERATOR Temperature 36.7 C (98 F) 09/13/2024 4:40 PM WRAP KNITTING MACHINE OPERATOR Respiratory Rate 18 09/13/2024 5:10 PM WRAP KNITTING MACHINE OPERATOR Oxygen Saturation 95% 09/13/2024 5:10 PM WRAP KNITTING MACHINE OPERATOR Inhaled Oxygen Concentration - - Weight 117.9 kg (260 lb) 10/26/2024 8:31 AM WRAP KNITTING MACHINE OPERATOR Height 172.7 cm (5' 8 ) 10/26/2024 8:31 AM WRAP KNITTING MACHINE OPERATOR Body Mass Index 39.53 10/26/2024 8:31 AM WRAP KNITTING MACHINE OPERATOR Plan of Treatment Upcoming Encounters Date Type Department Care Team (Latest Contact Info) Description 03/30/2025 7:30 AM CDT Hospital Encounter [facility] OR [address] [place] [phone] Souleymane Rodas DO [address] [place] [address] DR INIGUEZ [address] [place] [address] 03/30/2025 7:30 AM CDT - 03/30/2025 9:40 AM CDT Surgery [facility] OR [address] [place] [address] Souleymane Rodas DO [address] [place] [address] DR INIGUEZ [address] [place] [id number] LEFT TOTAL KNEE ARTHROPLASTY Scheduled Procedures Name Priority Associated Diagnoses Date/Ti me ARTHROPLASTY TOTAL KNEE Primary osteoarthritis of left knee 03/30/2025 7:30 AM CDT Medical Devices Implanted Type Area Crowning Hammer Operator Device Identifier Shelf Expiration Date Model / Serial / Lot [employer] Vaibhav Synergy 3mm 16mm 144cm Radiopaque 1 Access Port Inflation Lumen [id number] - [id number] Implanted:Qty: 1 on 02/10/2022 by Juan José Clemente MD at [facility] [employer] Vaibhav 12/27/2022 [id number] / / [id number] [employer] Stent Coronary De Rx Cocr Ors Msn 2.5x26mm [id number] - [id number] Implanted:Qty: 1 on 03/15/2022 by Juan José Clemente MD at [facility] [employer] 11/09/2023 [id number] / / [id number] [employer] Stent Coronary De Rx Cocr Ors Msn 3.5x22mm [id number] - [id number] Implanted:Qty: 1 on 05/20/2023 by Jackson Ramirez MD at [facility] [employer] 09/18/2023 [id number] / / [id number] [employer] Stent Coronary De Rx Cocr Ors Msn [id number] - [id number] Implanted:Qty: 1 on 05/20/2023 by Jackson Ramirez MD at [facility] [employer] 08/20/2023 [id number] / / [id number] Procedures Procedure Name Priority Date/Time Associated Diagnosis Comments MRI KNEE LEFT WO CONTRAST Schedule Routine, Read Routine (OP Routine) 12/20/2024 6:41 PM CDT Acute medial meniscus tear of left knee, initial encounter EGFR Routine 09/06/2024 3:32 PM WRAP KNITTING MACHINE OPERATOR Preoperative evaluation to rule out surgical contraindication HEMOGLOBIN A1C Routine 09/06/2024 3:32 PM WRAP KNITTING MACHINE OPERATOR Preoperative evaluation to rule out surgical contraindication LIPID PANEL Routine 09/06/2024 3:32 PM WRAP KNITTING MACHINE OPERATOR Preoperative evaluation to rule out surgical contraindication [...] signed by Simeon CHAUHAN: TIEN Report ID: [id number] Reading Location: [id number] Procedure Note Simeon Storey MD - 12/21/2024 [...] 9:09 AM - Electronically signed by Simeon Storey M.D. MJ: TIEN Report ID: [id number] Reading Location: [id number] us Donovan ROBIN IMG MRI PROCEDURES Final Result * eGFR (09/06/2024 3:32 PM WRAP KNITTING MACHINE OPERATOR) eGFR >90 >=60 mL/min/1. 73 m2 Comment: [...] was last reviewed 2021. Testing performed by: [address] [address] Blood 09/06/2024 3:32 PM WRAP KNITTING MACHINE OPERATOR 09/06/2024 4:14 PM WRAP KNITTING MACHINE OPERATOR Lexie Mccarthy NP LAB BLOOD ORDERABLES Final Result [facility] [address] [facility] Department [place] [address] * (ABNORMAL) Hemoglobin A1c (09/06/2024 3:32 PM WRAP KNITTING MACHINE OPERATOR) Hgb A1C 6.9(H) 4.0 - 5.6 % Comment:Testing performed by : [address] [address] Estimated Average Glucose 151 mg/dL [facility] AM[facility]AL Comment: The ADA recommends reporting an estimated Average Glucose (eAG) with all Hemoglobin A1c results using the equation derived from a study of 507 normal and diabetic adults. Minority populations were underrepresented and children were not included. (Diabetes Care 31:5602-8793, 2008). The eAG is not equivalent to a fasting glucose. Testing performed by: [address] [address] Blood 09/06/2024 3:32 PM WRAP KNITTING MACHINE OPERATOR 09/06/2024 4:14 PM WRAP KNITTING MACHINE OPERATOR Lexie Mccarthy NP LAB BLOOD ORDERABLES Final Result [facility] [address] [facility] Department [place] [address] * (ABNORMAL) Lipid panel (09/06/2024 3:32 PM WRAP KNITTING MACHINE OPERATOR) Cholesterol 158 30 - 199 mg/dL Comment: [...] last revised on 2018. Testing performed by: [address] [address] Triglycerides 254(H) <=149 mg/dL [facility] AMARAL Comment: [...] last revised on 2018. Testing performed by: [address] [address] HDL 34(L) >=40 mg/dL [facility] Comment: Interpretive Data Ages < or = [...] last revised on 2018. Testing performed by: [address] [address] LDL, calculated 82 <=129 mg/dL [facility] Comment: Interpretive Data Ages < or = [...] NCEP Expert Panel. Circulation 2004;110:227 3. Gallo Eubanks et al. SHIRA Cardiol. 2020 February 03;5(5):540-548. doi: 10.1001/jamacardio.2020.0013 Current Interpretive Data was last revised on 2024. Testing performed by: [address] [address] Non-HDL Cholesterol 124 mg/dL [facility] Comment: Interpretive Data Ages < or = [...] revised on 2018. Testing performed by: [facility], [address] [place] [address]., [address] Chol/HDL ratio 5 [facility] AMARAL Comment:Testing performed by : [facility], [address] [place] [address]., [address] Blood 09/06/2024 3:32 PM WRAP KNITTING MACHINE OPERATOR 09/06/2024 4:14 PM WRAP KNITTING MACHINE OPERATOR Lexie Mccarthy STATE APPELLATE CLERK LAB BLOOD ORDERABLES Final Result [facility] [address] [facility] Department [place] [address] from Last 3 Months or Most Recently Relevant to Health Maintenance Insurance [employer] ACCESS CHOICE Advance Directives For more information, please contact: [phone] * Full Code (Latest Code Status on [...] 5:08 PM 02/10/2022 5:28 PM Care Teams New Business Clerk Relationship Specialty Start Date End Date Lexie Mccarthy NP [address] [address] PCP - General Family Medicine 08/16/24 Juan José Clemente MD Consulting Physician Cardiology 04/02/22 Souleymane Rodas DO [address] [address] Consulting Physician Orthopedic Surgery 09/13/24
[2025-01-02 18:42] LABS: Trichomonas Vag PCR NOT DETECTED (NOT DETECTE)
[2025-01-02 19:07] LABS: Chlamydia trachomatis NOT DETECTED (NOT DETECTE); Neisseria gonorrhoeae PCR NOT DETECTED (NOT DETECTE)
[2025-01-02] MEDS: ACETAMINOPHEN 325 MG TABLET 650 MG PO (19:37)
[2025-01-02] MEDS: levoFLOXacin 500 MG TABLET PO (19:38)
[2025-01-02] MEDS: HYDROcodone/acetaminophen (*CRX) 5-325 MG TABLET 1 TAB PO (19:38)
[2025-01-02 20:07] VITALS: BP 158/102; PULSE 66; RESP 15; O2SAT 100
== END 2025-01-02 20:08 | disposition home or self-care (01) ==
PROVIDERS: Student in an Organized Health Care Education/Training Program; Emergency Provider Student in an Organized Health Care Education/Training Program; PCP Pediatrics
DX: N45.3 Epididymo-orchitis (principal); N45.1 Epididymitis; N43.3 Hydrocele, unspecified; I86.1 Scrotal varices; K76.0 Fatty (change of) liver, not elsewhere classified; E27.8 Other specified disorders of adrenal gland; N28.89 Other specified disorders of kidney and ureter; E11.65 Type 2 diabetes mellitus with hyperglycemia; I25.2 Old myocardial infarction; R93.41 Abnormal radiologic findings on diagnostic imaging of renal pelvis, ureter, or bladder; K40.20 Bilateral inguinal hernia, without obstruction or gangrene, not specified as recurrent
CPT/HCPCS: 36415; 74177; 76870; 80053; 81003; 82550; 83605; 83735; 85025; 87491; 87591; 87661; 93976; 96361; 96374; 99284; A9270; J2270; J7030; Q9967